=== PATIENT | male | born 1975 | race Caucasian/White ===

== ENCOUNTER 2025-09-12 14:58 | Emergency (ER) | payer MEDICAID ==
[~2025-09-12] VITALS: Ht 195.6 cm; Wt 95.3 kg
[2025-09-12 15:00] VITALS: TEMP 98.1
[2025-09-12] MEDS ORDERED: ONDANSETRON 4 MG TAB.RAPDIS ONE (15:20)
[2025-09-12] MEDS: ONDANSETRON 4 MG TAB.RAPDIS SL ONE (15:34)
[2025-09-12] MEDS ORDERED: GLUCAGON,HUMAN RECOMBINANT 1 MG/VIAL VIAL ONE (15:41)
[2025-09-12] MEDS ORDERED: WATER FOR INJECTION,STERILE 10 ML ONE (15:42)
[2025-09-12] MEDS: GLUCAGON,HUMAN RECOMBINANT 1 MG/VIAL VIAL IM ONE (15:52)
[2025-09-12] MEDS ORDERED: ONDA4TAB5 PO (16:12)
[2025-09-12] MEDS ORDERED: PANT20TA2 PO (16:12)
[2025-09-12 16:32] VITALS: BP 135/85; O2SAT 99
== END 2025-09-12 16:25 | disposition home or self-care (01) ==
LOC: ER 15:26
DX: T18.128A Food in esophagus causing other injury, initial encounter (principal); Z79.899 Other long term (current) drug therapy; W44.F3XA Food entering into or through a natural orifice, initial encounter; Y93.89 Activity, other specified; Y92.89 Other specified places as the place of occurrence of the external cause; Y99.8 Other external cause status
CPT/HCPCS: 99283; 96372; J1610; Q0162